=== PATIENT | female | born 1950 | race Caucasian/White ===

== ENCOUNTER 2018-07-16 07:07 | Inpatient (IN) | payer OTHER ==
[~2018-07-16] VITALS: Ht 154.9 cm; Wt 99.1 kg
[2018-07-16] MEDS ORDERED: RINGERS SOLUTION,LACTATED 1,000 ML IV ONE ×3 (07:50→10:45)
[2018-07-16] MEDS ORDERED: ACETAMINOPHEN 1000 MG/ISO-OSM 100 ML IV ONE ×2 (08:45→09:03)
[2018-07-16] MEDS ORDERED: FentaNYL CITRATE-PF 100 MCG/2 ML VIAL IVP PRN (08:45)
[2018-07-16] MEDS ORDERED: HYDROmorphone 2 MG/ML SYRINGE IVP PRN ×2 (08:45→09:00)
[2018-07-16] MEDS ORDERED: CELECOXIB 200 MG CAPSULE PO ONE ×2 (08:45→09:00)
[2018-07-16] MEDS ORDERED: MEPERIDINE-PF 25 MG/ML VIAL IVP PRN (08:45)
[2018-07-16] MEDS ORDERED: ONDANSETRON HCL 4 MG/2 ML VIAL IVP PRN ×2 (09:00→11:30)
[2018-07-16] MEDS ORDERED: BUPIVACAINE LIPOSOME/PF 1.3%-13.3MG/ML SUSPENSION 20 ML VIAL INJ ONE ×2 (09:00)
[2018-07-16] MEDS ORDERED: TRANEXAMIC ACID 1,000 MG in DEXTROSE 5%-WATER 50 ML IV ONE ×2 (09:00)
[2018-07-16] MEDS ORDERED: ZOLPIDEM TARTRATE 5 MG TABLET PO PRN (09:00)
[2018-07-16] MEDS ORDERED: OxyCODONE HCL 5 MG IR TABLET PO PRN (09:00)
[2018-07-16] MEDS ORDERED: CYCLOBENZAPRINE HCL 10 MG TABLET PO PRN (09:00)
[2018-07-16] MEDS ORDERED: CELECOXIB 200 MG CAPSULE ONE (09:03)
[2018-07-16 09:10] LABS: GLUCOMETER DEV NAME(LOC) SDS.; GLUCOSE,POINT OF CARE 113 MG/DL (70-110)
[2018-07-16] MEDS ORDERED: SODIUM CHLORIDE 0.9% 10 ML ONE (09:19)
[2018-07-16] MEDS ORDERED: SODIUM CL IRRIG SOLN BAG 3,000 ML IRRIG ONE (09:20)
[2018-07-16] MEDS ORDERED: BACITRACIN 50,000 UNITS/VIAL ONE (09:20)
[2018-07-16] MEDS ORDERED: BUPIVACAINE HCL/PF 0.5% 30 ML VIAL ONE (09:20)
[2018-07-16] MEDS ORDERED: SODIUM CHLORIDE 0.9% 100 ML ONE (09:28)
[2018-07-16] MEDS ORDERED: BENZOCAINE/MENTHOL LOZENGE PO PRN (11:30)
[2018-07-16] MEDS ORDERED: ZOLPIDEM TARTRATE 10 MG TABLET PO PRN (11:30)
[2018-07-16] MEDS ORDERED: DiphenhydrAMINE HCL 50 MG/ML VIAL IVP PRN (11:30)
[2018-07-16] MEDS ORDERED: BISACODYL 10 MG RECTAL RECTAL SUPPOSITORY PR PRN (11:30)
[2018-07-16] MEDS ORDERED: MAG HYDROX/AL HYDROX/SIMETH 30 ML SUSP UDCUP PO PRN (11:30)
[2018-07-16 13:10] VITALS: BP 153/93
[2018-07-16] MEDS: DEXTROSE 5%-LACTATED RINGERS 1,000 ML IV SCH (14:31)
[2018-07-16] MEDS: ACETAMINOPHEN 1000 MG/ISO-OSM 100 ML IV SCH ×3 (14:31→20:12)
[2018-07-16 16:06] VITALS: BP 156/94
[2018-07-16] MEDS ORDERED: ATOR40TA28 PO (16:24)
[2018-07-16] MEDS ORDERED: LISI-662 PO (16:24)
[2018-07-16] MEDS ORDERED: GABA-531 PO (16:24)
[2018-07-16] MEDS ORDERED: CALC-52 PO (16:24)
[2018-07-16] MEDS ORDERED: ALEN70TA10 PO (16:24)
[2018-07-16] MEDS: LISINOPRIL 20 MG TABLET PO SCH (17:14)
[2018-07-16] MEDS: CeFAZolin 1 GM/DEXTROSE 50 ML IV SCH (17:34)
[2018-07-16 20:05] VITALS: BP 124/60
[2018-07-16] MEDS: DOCUSATE SODIUM 100 MG CAPSULE PO SCH (20:12)
[2018-07-16] MEDS: ATORVASTATIN CALCIUM 40 MG TABLET PO SCH (20:12)
[2018-07-16] MEDS: GABAPENTIN 300 MG CAPSULE PO SCH (20:12)
[2018-07-16] MEDS: FAMOTIDINE 20 MG TABLET PO SCH (20:12)
[2018-07-16] MEDS: CELECOXIB 200 MG CAPSULE PO SCH (20:13)
[2018-07-16] MEDS: CALCIUM OYSTER SHELL 250 MG-VIT D3 125 UNITS TABLET PO SCH (20:13)
[2018-07-16] MEDS: OXYGEN THERAPY IH SCH (20:21)
[2018-07-16 23:54] VITALS: BP 134/66
[2018-07-17] MEDS: CeFAZolin 1 GM/DEXTROSE 50 ML IV SCH (01:55)
[2018-07-17] MEDS: ACETAMINOPHEN 1000 MG/ISO-OSM 100 ML IV SCH ×2 (02:34→10:34)
[2018-07-17] MEDS: DEXTROSE 5%-LACTATED RINGERS 1,000 ML IV SCH ×2 (04:58→14:10)
[2018-07-17] MEDS ORDERED: EPHEDrine SULFATE 50 MG/ML VIAL IM ONE (05:09)
[2018-07-17] MEDS ORDERED: DEXAMETHASONE SOD PHOS 4 MG/ML VIAL IVP ONE (05:09)
[2018-07-17] MEDS ORDERED: 0.9% SODIUM CHLORIDE 10 ML VIAL IVP ONE (05:09)
[2018-07-17] MEDS ORDERED: SUCCINYLCHOLINE CHLORIDE 20 MG/ML 10 ML VIAL IVP ONE (05:09)
[2018-07-17] MEDS ORDERED: ONDANSETRON HCL 4 MG/2 ML VIAL IVP ONE (05:09)
[2018-07-17] MEDS ORDERED: PROPOFOL 1% 20 ML VIAL IVP ONE (05:09)
[2018-07-17] MEDS ORDERED: FentaNYL CITRATE-PF 100 MCG/2 ML VIAL IVP ONE (05:09)
[2018-07-17] MEDS ORDERED: HYDROmorphone 2 MG/ML SYRINGE IVP ONE (05:09)
[2018-07-17 05:35] VITALS: BP 126/65
[2018-07-17 06:07] LABS: BASOPHILS % (AUTO) 0.1 % (0.0-2.0); EOSINOPHILS % (AUTO) 0 % (1.0-6.0); HEMATOCRIT 35.6 % (36-46); HEMOGLOBIN 11.9 g/dL (12.0-16.0); LYMPHOCYTES # (AUTO) 1.7 K/uL (1.0-4.8); LYMPHOCYTES % (AUTO) 17.9 % (22.0-44.0); MEAN CORPUSCULAR HGB CONC 33.3 G/dL (31.0-37.0); MEAN CORPUSCULAR VOLUME 93 fL (80-100); MONOCYTES # (AUTO) 0.8 K/uL (0.1-1.0); MONOCYTES % (AUTO) 8.2 % (2.0-9.0); NEUTROPHILS # (AUTO) 7.2 K/uL (1.8-7.7); NEUTROPHILS % (AUTO) 73.8 % (40.0-70.0); PLATELET COUNT (AUTO) 227 K/uL (150-450); RED BLOOD CELL COUNT(AUTO) 3.82 MIL/uL (4.00-5.20); RED CELL DISTRIBUTION WIDTH 14.1 % (11.5-14.5)
[2018-07-17 06:26] LABS: ANION GAP 10 mmol/L (8-16); CALCIUM, TOTAL 8.4 mg/dL (8.8-10.5); CARBON DIOXIDE 24 mmol/L (22-29); CHLORIDE 106 mmol/L (98-107); CREATININE 0.86 mg/dL (0.60-1.30); GLOMERULAR FILTR. RATE CALC > 60 mL/min (>60); GLUCOSE,RANDOM 141 mg/dL (70-110); POTASSIUM 3.9 mmol/L (3.5-5.1); SODIUM SERUM 140 mmol/L (136-145); UREA NITROGEN, BLOOD 14 mg/dL (7-18)
[2018-07-17] MEDS: OXYGEN THERAPY IH SCH (08:00)
[2018-07-17 08:02] VITALS: BP 133/70
[2018-07-17] MEDS: GABAPENTIN 300 MG CAPSULE PO SCH ×3 (08:51→20:44)
[2018-07-17] MEDS: DOCUSATE SODIUM 100 MG CAPSULE PO SCH ×2 (08:52→20:43)
[2018-07-17] MEDS: CALCIUM OYSTER SHELL 250 MG-VIT D3 125 UNITS TABLET PO SCH ×2 (08:52→20:44)
[2018-07-17] MEDS: LISINOPRIL 20 MG TABLET PO SCH (08:52)
[2018-07-17] MEDS: FAMOTIDINE 20 MG TABLET PO SCH ×2 (08:52→20:44)
[2018-07-17] MEDS: CELECOXIB 200 MG CAPSULE PO SCH ×2 (08:52→20:43)
[2018-07-17] MEDS: RIVAROXABAN 10 MG TABLET PO SCH (10:33)
[2018-07-17 10:34] VITALS: BP 142/70
[2018-07-17 11:54] VITALS: BP 144/73
[2018-07-17 15:44] VITALS: BP 154/66
[2018-07-17] MEDS: OxyCODONE HCL/ACETAMINOPHEN 10-325 MG TABLET PO PRN (17:01)
[2018-07-17 19:58] VITALS: BP 142/72
[2018-07-17] MEDS: ATORVASTATIN CALCIUM 40 MG TABLET PO SCH (20:44)
[2018-07-18] VITALS: BP 141/74
[2018-07-18 04:00] VITALS: BP 145/82
[2018-07-18] MEDS ORDERED: ALENDRONATE SODIUM 70 MG TABLET PO SCH (06:30)
[2018-07-18 07:44] LABS: BASOPHILS % (AUTO) 0.9 % (0.0-2.0); EOSINOPHILS % (AUTO) 0.6 % (1.0-6.0); HEMATOCRIT 38.3 % (36-46); HEMOGLOBIN 12.8 g/dL (12.0-16.0); LYMPHOCYTES # (AUTO) 2.9 K/uL (1.0-4.8); LYMPHOCYTES % (AUTO) 27.1 % (22.0-44.0); MEAN CORPUSCULAR HEMOGLOBIN 31.2 pg (26.0-34.0); MEAN CORPUSCULAR HGB CONC 33.3 G/dL (31.0-37.0); MEAN CORPUSCULAR VOLUME 94 fL (80-100); MONOCYTES # (AUTO) 0.8 K/uL (0.1-1.0); MONOCYTES % (AUTO) 7.3 % (2.0-9.0); NEUTROPHILS # (AUTO) 6.9 K/uL (1.8-7.7); NEUTROPHILS % (AUTO) 64.1 % (40.0-70.0); PLATELET COUNT (AUTO) 240 K/uL (150-450); RED BLOOD CELL COUNT(AUTO) 4.09 MIL/uL (4.00-5.20); RED CELL DISTRIBUTION WIDTH 14.2 % (11.5-14.5)
[2018-07-18 08:10] VITALS: BP 164/81
[2018-07-18] MEDS: CALCIUM OYSTER SHELL 250 MG-VIT D3 125 UNITS TABLET PO SCH ×2 (08:39→20:45)
[2018-07-18] MEDS: FAMOTIDINE 20 MG TABLET PO SCH ×2 (08:40→20:45)
[2018-07-18] MEDS: LISINOPRIL 20 MG TABLET PO SCH (08:40)
[2018-07-18] MEDS: DOCUSATE SODIUM 100 MG CAPSULE PO SCH ×2 (08:40→20:45)
[2018-07-18] MEDS: GABAPENTIN 300 MG CAPSULE PO SCH ×3 (08:40→20:45)
[2018-07-18] MEDS: CELECOXIB 200 MG CAPSULE PO SCH ×2 (08:40→20:45)
[2018-07-18] MEDS: OxyCODONE HCL/ACETAMINOPHEN 10-325 MG TABLET PO PRN ×2 (08:49→17:36)
[2018-07-18 12:24] VITALS: BP 150/68
[2018-07-18 16:18] VITALS: BP 125/67
[2018-07-18] MEDS: RIVAROXABAN 10 MG TABLET PO SCH (16:36)
[2018-07-18 20:44] VITALS: BP 132/61
[2018-07-18] MEDS: ATORVASTATIN CALCIUM 40 MG TABLET PO SCH (20:45)
[2018-07-19 00:09] VITALS: BP 138/66
[2018-07-19] MEDS: OxyCODONE HCL/ACETAMINOPHEN 10-325 MG TABLET PO PRN ×2 (05:32→15:06)
[2018-07-19 05:51] VITALS: BP 131/65
[2018-07-19 07:40] VITALS: BP 128/70
[2018-07-19] MEDS: CELECOXIB 200 MG CAPSULE PO SCH (08:43)
[2018-07-19] MEDS: FAMOTIDINE 20 MG TABLET PO SCH (08:43)
[2018-07-19] MEDS: CALCIUM OYSTER SHELL 250 MG-VIT D3 125 UNITS TABLET PO SCH (08:43)
[2018-07-19] MEDS: GABAPENTIN 300 MG CAPSULE PO SCH ×2 (08:43→15:49)
[2018-07-19] MEDS: LISINOPRIL 20 MG TABLET PO SCH (08:44)
[2018-07-19] MEDS: DOCUSATE SODIUM 100 MG CAPSULE PO SCH (08:44)
[2018-07-19 11:34] VITALS: BP 145/68
[2018-07-19] MEDS ORDERED: OXYC-38 PO (14:30)
[2018-07-19] MEDS ORDERED: RIVA10 PO (14:31)
[2018-07-19 15:04] VITALS: BP 140/70
== END 2018-07-19 17:00 | disposition home or self-care (01) | DRG 470 ==
LOC: 4E 07:07
PROVIDERS: ADMIT Orthopaedic Surgery; ATTEND Orthopaedic Surgery
PROC: 0SRC0J9 Replacement of Right Knee Joint with Synthetic Substitute, Cemented, Open Approach (ICD-10-PCS; principal; 2018-07-16 10:00)
DX: M17.11 Unilateral primary osteoarthritis, right knee (principal); Z68.41 Body mass index [BMI] 40.0-44.9, adult; E78.5 Hyperlipidemia, unspecified; I10 Essential (primary) hypertension; K21.9 Gastro-esophageal reflux disease without esophagitis; E66.01 Morbid (severe) obesity due to excess calories; E78.00 Pure hypercholesterolemia, unspecified; G89.29 Other chronic pain
CPT/HCPCS: 87081; 88300; 93005; 97110; 97116; 97162; 97166; 97530; 97535; C9290; G0238; G0378; J0131; J0330; J0690; J1100; J1170; J2405; J2704; J3010; J3490; J7050; J7060; J7120

== ENCOUNTER 2019-05-20 05:28 | Inpatient (IN) | payer OTHER ==
[2019-05-13 12:11] LABS: BASOPHILS % (AUTO) 0.7 % (0.0-2.0); EOSINOPHILS % (AUTO) 1.5 % (1.0-6.0); HEMATOCRIT 40.3 % (36-46); HEMOGLOBIN 13.5 g/dL (12.0-16.0); LYMPHOCYTES % (AUTO) 37.5 % (22.0-44.0); MEAN CORPUSCULAR HEMOGLOBIN 31.2 pg (26.0-34.0); MEAN CORPUSCULAR HGB CONC 33.5 G/dL (31.0-37.0); MEAN CORPUSCULAR VOLUME 93 fL (80-100); MONOCYTES # (AUTO) 0.6 K/uL (0.1-1.0); NEUTROPHILS # (AUTO) 4.3 K/uL (1.8-7.7); NEUTROPHILS % (AUTO) 53.3 % (40.0-70.0); PLATELET COUNT (AUTO) 238 K/uL (150-450); RED BLOOD CELL COUNT(AUTO) 4.32 MIL/uL (4.00-5.20); RED CELL DISTRIBUTION WIDTH 13.7 % (11.5-14.5)
[2019-05-13 12:21] LABS: ANION GAP 6 mmol/L (8-16); CALCIUM, TOTAL 9.1 mg/dL (8.8-10.5); CARBON DIOXIDE 29 mmol/L (22-29); CHLORIDE 104 mmol/L (98-107); GLUCOSE,RANDOM 93 mg/dL (70-110); POTASSIUM 3.9 mmol/L (3.5-5.1); SODIUM SERUM 139 mmol/L (136-145); UREA NITROGEN, BLOOD 20 mg/dL (7-18)
[2019-05-13 12:22] LABS: GLOMERULAR FILTR. RATE CALC > 60 mL/min (>60)
[2019-05-13 12:24] LABS: INR 1.1 (0.9-1.1); PROTHROMBIN TIME 10.8 SEC (9.4-11.6)
[~2019-05-20] VITALS: Ht 162.6 cm; Wt 95.9 kg
[~2019-05-20 05:28] MED LIST: ALEN35TA23 PO; ASPI-556 PO; ATOR10TA84 PO; GABA-529 PO; GLUC-111 PO; LISI-661 PO; RINGERS SOLUTION,LACTATED 1,000 ML IV ONE
[2019-05-20] MEDS ORDERED: RINGERS SOLUTION,LACTATED 1,000 ML IV ONE (06:00)
[2019-05-20 06:30] LABS: GLUCOMETER DEV NAME(LOC) SDS.; GLUCOSE,POINT OF CARE 108 MG/DL (70-110)
[2019-05-20] MEDS ORDERED: BUPIVACAINE LIPOSOME/PF 1.3%-13.3MG/ML SUSPENSION 20 ML VIAL INJ ONE (06:45)
[2019-05-20] MEDS ORDERED: HYDROmorphone 2 MG/ML SYRINGE IVP PRN (07:00)
[2019-05-20] MEDS ORDERED: ONDANSETRON HCL 4 MG/2 ML VIAL IVP PRN ×2 (07:00→09:30)
[2019-05-20] MEDS ORDERED: ZOLPIDEM TARTRATE 5 MG TABLET PO PRN (07:00)
[2019-05-20] MEDS ORDERED: FentaNYL CITRATE-PF 100 MCG/2 ML VIAL IVP PRN (07:00)
[2019-05-20] MEDS ORDERED: CELECOXIB 200 MG CAPSULE PO ONE (07:00)
[2019-05-20] MEDS ORDERED: MEPERIDINE-PF 25 MG/ML VIAL IVP PRN (07:00)
[2019-05-20] MEDS: ACETAMINOPHEN 1000 MG/ISO-OSM 100 ML IV SCH ×3 (07:04→18:44)
[2019-05-20] MEDS ORDERED: TRANEXAMIC ACID 1,000 MG in DEXTROSE 5%-WATER 50 ML IV ONE (07:15)
[2019-05-20] MEDS ORDERED: SODIUM CL IRRIG SOLN BAG 3,000 ML IRRIG ONE (07:52)
[2019-05-20] MEDS ORDERED: BACITRACIN 50,000 UNITS/VIAL ONE (07:52)
[2019-05-20] MEDS: OXYGEN THERAPY IH SCH (08:00)
[2019-05-20] MEDS ORDERED: BACITRACIN 28.4 GM OINTMENT TP PRN (09:30)
[2019-05-20] MEDS ORDERED: MAG HYDROX/AL HYDROX/SIMETH 30 ML SUSP UDCUP PO PRN (09:30)
[2019-05-20] MEDS ORDERED: ZOLPIDEM TARTRATE 10 MG TABLET PO PRN (09:30)
[2019-05-20] MEDS ORDERED: BISACODYL 10 MG RECTAL RECTAL SUPPOSITORY PR PRN (09:30)
[2019-05-20] MEDS ORDERED: DiphenhydrAMINE HCL 50 MG/ML VIAL IVP PRN (09:30)
[2019-05-20 09:43] VITALS: BP 141/97
[2019-05-20 11:23] VITALS: BP 145/90
[2019-05-20 12:27] VITALS: BP 157/87
[2019-05-20] MEDS: OxyCODONE HCL 5 MG IR TABLET PO PRN ×2 (12:54→21:07)
[2019-05-20] MEDS: CYCLOBENZAPRINE HCL 10 MG TABLET PO PRN ×2 (12:54→21:07)
[2019-05-20] MEDS: SODIUM CHLORIDE 0.9% 1,000 ML IV SCH ×2 (13:06→21:34)
[2019-05-20] MEDS: HYDROmorphone 2 MG/ML SYRINGE IVP PRN ×2 (15:23→18:44)
[2019-05-20 16:05] VITALS: BP 100/72
[2019-05-20] MEDS: CeFAZolin 1 GM/DEXTROSE 50 ML IV SCH (16:40)
[2019-05-20 19:28] LABS: GLUCOMETER DEV NAME(LOC) 6N.1; GLUCOSE,POINT OF CARE 158 MG/DL (70-110)
[2019-05-20 19:43] VITALS: BP 160/89
[2019-05-20] MEDS ORDERED: LISINOPRIL 10 MG TABLET PO ONE (21:00)
[2019-05-20] MEDS ORDERED: CloNIDine HCL 0.1 MG TABLET PO PRN (21:00)
[2019-05-20] MEDS: CELECOXIB 200 MG CAPSULE PO SCH (21:07)
[2019-05-20] MEDS: DOCUSATE SODIUM 100 MG CAPSULE PO SCH (21:07)
[2019-05-20] MEDS: FAMOTIDINE 20 MG TABLET PO SCH (21:07)
[2019-05-20] MEDS: ATORVASTATIN CALCIUM 10 MG TABLET PO SCH (21:33)
[2019-05-20 23:10] VITALS: BP 145/73
[2019-05-21] MEDS: ACETAMINOPHEN 1000 MG/ISO-OSM 100 ML IV SCH ×2 (00:39→06:39)
[2019-05-21] MEDS: CeFAZolin 1 GM/DEXTROSE 50 ML IV SCH (00:40)
[2019-05-21] MEDS: OxyCODONE HCL 5 MG IR TABLET PO PRN ×2 (01:08→05:17)
[2019-05-21 05:05] VITALS: BP 142/71
[2019-05-21 05:24] VITALS: BP 167/62
[2019-05-21] MEDS ORDERED: EPHEDrine SULFATE 50 MG/ML VIAL IM ONE (05:56)
[2019-05-21] MEDS ORDERED: PHENYLEPHRINE HCL 10 MG/ML VIAL IVP ONE (05:56)
[2019-05-21] MEDS ORDERED: FentaNYL CITRATE-PF 100 MCG/2 ML VIAL IVP ONE (05:56)
[2019-05-21] MEDS ORDERED: 0.9% SODIUM CHLORIDE 10 ML VIAL IVP ONE (05:56)
[2019-05-21] MEDS ORDERED: KETAMINE HCL 50 MG/ML 10 ML VIAL IVP ONE (05:56)
[2019-05-21 06:18] LABS: GLUCOMETER DEV NAME(LOC) 6N.1; GLUCOSE,POINT OF CARE 186 MG/DL (70-110)
[2019-05-21 06:59] LABS: ALANINE AMINOTRANSFERASE 21 U/L (12-78); ALBUMIN 2.8 g/dL (3.4-5.0); ALKALINE PHOSPHATASE 60 U/L (46-116); ANION GAP 7 mmol/L (8-16); ASPARTATE AMINOTRANSFERASE 19 U/L (15-37); BILIRUBIN,TOTAL 0.4 mg/dL (0.1-1.0); CALCIUM, TOTAL 8.2 mg/dL (8.8-10.5); CARBON DIOXIDE 28 mmol/L (22-29); CHLORIDE 105 mmol/L (98-107); CREATININE 0.56 mg/dL (0.60-1.30); GLUCOSE,RANDOM 154 mg/dL (70-110); POTASSIUM 4.6 mmol/L (3.5-5.1); SODIUM SERUM 140 mmol/L (136-145); TOTAL PROTEIN, SERUM 6.5 g/dL (6.4-8.2); UREA NITROGEN, BLOOD 11 mg/dL (7-18)
[2019-05-21 07:13] LABS: GLOMERULAR FILTR. RATE CALC > 60 mL/min (>60)
[2019-05-21 07:38] LABS: BASOPHILS % (AUTO) 0.4 % (0.0-2.0); EOSINOPHILS % (AUTO) 0.6 % (1.0-6.0); HEMATOCRIT 36.4 % (36-46); HEMOGLOBIN 12.1 g/dL (12.0-16.0); LYMPHOCYTES # (AUTO) 1.8 K/uL (1.0-4.8); LYMPHOCYTES % (AUTO) 18.8 % (22.0-44.0); MEAN CORPUSCULAR HEMOGLOBIN 31.2 pg (26.0-34.0); MEAN CORPUSCULAR HGB CONC 33.3 G/dL (31.0-37.0); MEAN CORPUSCULAR VOLUME 94 fL (80-100); MONOCYTES # (AUTO) 0.8 K/uL (0.1-1.0); MONOCYTES % (AUTO) 8.1 % (2.0-9.0); NEUTROPHILS # (AUTO) 6.9 K/uL (1.8-7.7); NEUTROPHILS % (AUTO) 72.1 % (40.0-70.0); PLATELET COUNT (AUTO) 227 K/uL (150-450); RED BLOOD CELL COUNT(AUTO) 3.88 MIL/uL (4.00-5.20); RED CELL DISTRIBUTION WIDTH 13.8 % (11.5-14.5)
[2019-05-21 08:01] VITALS: BP 155/76
[2019-05-21] MEDS: FAMOTIDINE 20 MG TABLET PO SCH ×2 (08:47→20:37)
[2019-05-21] MEDS: GABAPENTIN 100 MG CAPSULE PO SCH (08:48)
[2019-05-21] MEDS: DOCUSATE SODIUM 100 MG CAPSULE PO SCH ×2 (08:48→20:37)
[2019-05-21] MEDS: RIVAROXABAN 10 MG TABLET PO SCH (08:50)
[2019-05-21] MEDS: CELECOXIB 200 MG CAPSULE PO SCH ×2 (08:50→20:34)
[2019-05-21] MEDS: LISINOPRIL 10 MG TABLET PO SCH (08:50)
[2019-05-21] MEDS: HYDROmorphone 2 MG/ML SYRINGE IVP PRN (08:51)
[2019-05-21] MEDS ORDERED: DEXTROSE 50%-WATER 25 GM/50 ML SYRINGE IVP PRN (10:15)
[2019-05-21 11:40] VITALS: BP 161/87
[2019-05-21 12:03] LABS: GLUCOMETER DEV NAME(LOC) 4E.2; GLUCOSE,POINT OF CARE 150 MG/DL (70-110)
[2019-05-21] MEDS: INSULIN LISPRO 100 UNITS/ML SQ PRN ×3 (12:04→21:27)
[2019-05-21 15:59] VITALS: BP 139/76
[2019-05-21] MEDS: ATORVASTATIN CALCIUM 10 MG TABLET PO SCH (21:47)
[2019-05-21 23:59] VITALS: BP 141/78
[2019-05-22 04:00] VITALS: BP 138/74
[2019-05-22 04:03] LABS: GLUCOMETER DEV NAME(LOC) 6N.1; GLUCOSE,POINT OF CARE 143 MG/DL (70-110)
[2019-05-22 05:51] LABS: GLUCOMETER DEV NAME(LOC) 4E.2; GLUCOSE,POINT OF CARE 180 MG/DL (70-110)
[2019-05-22] MEDS: INSULIN LISPRO 100 UNITS/ML SQ PRN ×2 (06:48→22:28)
[2019-05-22 06:51] LABS: BASOPHILS % (AUTO) 0.2 % (0.0-2.0); EOSINOPHILS % (AUTO) 0.5 % (1.0-6.0); HEMATOCRIT 34.5 % (36-46); HEMOGLOBIN 11.6 g/dL (12.0-16.0); LYMPHOCYTES # (AUTO) 1.8 K/uL (1.0-4.8); LYMPHOCYTES % (AUTO) 17.1 % (22.0-44.0); MEAN CORPUSCULAR HEMOGLOBIN 31.7 pg (26.0-34.0); MEAN CORPUSCULAR HGB CONC 33.6 G/dL (31.0-37.0); MEAN CORPUSCULAR VOLUME 94 fL (80-100); MONOCYTES # (AUTO) 0.9 K/uL (0.1-1.0); MONOCYTES % (AUTO) 8.1 % (2.0-9.0); NEUTROPHILS # (AUTO) 7.9 K/uL (1.8-7.7); NEUTROPHILS % (AUTO) 74.1 % (40.0-70.0); PLATELET COUNT (AUTO) 226 K/uL (150-450); RED BLOOD CELL COUNT(AUTO) 3.66 MIL/uL (4.00-5.20)
[2019-05-22 07:17] LABS: ALANINE AMINOTRANSFERASE 18 U/L (12-78); ALBUMIN 2.8 g/dL (3.4-5.0); ALKALINE PHOSPHATASE 61 U/L (46-116); ANION GAP 6 mmol/L (8-16); ASPARTATE AMINOTRANSFERASE 13 U/L (15-37); BILIRUBIN,TOTAL 0.5 mg/dL (0.1-1.0); CALCIUM, TOTAL 8.5 mg/dL (8.8-10.5); CARBON DIOXIDE 28 mmol/L (22-29); CHLORIDE 107 mmol/L (98-107); CREATININE 0.68 mg/dL (0.60-1.30); GLUCOSE,RANDOM 149 mg/dL (70-110); POTASSIUM 4.5 mmol/L (3.5-5.1); SODIUM SERUM 141 mmol/L (136-145); TOTAL PROTEIN, SERUM 6.8 g/dL (6.4-8.2); UREA NITROGEN, BLOOD 12 mg/dL (7-18)
[2019-05-22 07:20] LABS: GLOMERULAR FILTR. RATE CALC > 60 mL/min (>60)
[2019-05-22] MEDS: OXYGEN THERAPY IH SCH ×2 (08:00→20:00)
[2019-05-22 09:05] VITALS: BP 144/74
[2019-05-22] MEDS: CELECOXIB 200 MG CAPSULE PO SCH ×2 (09:11→21:56)
[2019-05-22] MEDS: FAMOTIDINE 20 MG TABLET PO SCH ×2 (09:11→21:56)
[2019-05-22] MEDS: DOCUSATE SODIUM 100 MG CAPSULE PO SCH ×2 (09:11→21:56)
[2019-05-22] MEDS: LISINOPRIL 10 MG TABLET PO SCH (09:12)
[2019-05-22] MEDS: OxyCODONE HCL/ACETAMINOPHEN 10-325 MG TABLET PO PRN ×2 (09:12→20:03)
[2019-05-22] MEDS: CYCLOBENZAPRINE HCL 10 MG TABLET PO PRN (09:12)
[2019-05-22] MEDS: GABAPENTIN 100 MG CAPSULE PO SCH (09:12)
[2019-05-22 12:24] LABS: GLUCOMETER DEV NAME(LOC) 4E.2; GLUCOSE,POINT OF CARE 154 MG/DL (70-110)
[2019-05-22 12:24] LABS: GLUCOMETER DEV NAME(LOC) 6N.1; GLUCOSE,POINT OF CARE 131 MG/DL (70-110)
[2019-05-22 13:16] VITALS: BP 155/99
[2019-05-22] MEDS: SODIUM CHLORIDE 0.9% 1,000 ML IV SCH (14:47)
[2019-05-22] MEDS: RIVAROXABAN 10 MG TABLET PO SCH (16:42)
[2019-05-22 17:00] VITALS: BP 136/71
[2019-05-22 19:40] VITALS: BP 134/73
[2019-05-22 21:23] LABS: GLUCOMETER DEV NAME(LOC) 6N.1; GLUCOSE,POINT OF CARE 124 MG/DL (70-110)
[2019-05-22 21:40] LABS: GLUCOMETER DEV NAME(LOC) 4E.2; GLUCOSE,POINT OF CARE 145 MG/DL (70-110)
[2019-05-22] MEDS: ATORVASTATIN CALCIUM 10 MG TABLET PO SCH (21:56)
[2019-05-22 23:05] VITALS: BP 117/52
[2019-05-23] MEDS: OxyCODONE HCL/ACETAMINOPHEN 10-325 MG TABLET PO PRN ×2 (02:03→07:46)
[2019-05-23] MEDS: SODIUM CHLORIDE 0.9% 1,000 ML IV SCH (04:07)
[2019-05-23 04:45] VITALS: BP 102/60
[2019-05-23 06:11] LABS: GLUCOMETER DEV NAME(LOC) 6N.1; GLUCOSE,POINT OF CARE 110 MG/DL (70-110)
[2019-05-23 06:30] LABS: BASOPHILS % (AUTO) 0.7 % (0.0-2.0); EOSINOPHILS % (AUTO) 1.6 % (1.0-6.0); HEMATOCRIT 35.7 % (36-46); HEMOGLOBIN 11.9 g/dL (12.0-16.0); LYMPHOCYTES # (AUTO) 4.3 K/uL (1.0-4.8); LYMPHOCYTES % (AUTO) 37.4 % (22.0-44.0); MEAN CORPUSCULAR HEMOGLOBIN 31.2 pg (26.0-34.0); MEAN CORPUSCULAR HGB CONC 33.2 G/dL (31.0-37.0); MEAN CORPUSCULAR VOLUME 94 fL (80-100); MONOCYTES # (AUTO) 0.8 K/uL (0.1-1.0); MONOCYTES % (AUTO) 7.2 % (2.0-9.0); NEUTROPHILS # (AUTO) 6.1 K/uL (1.8-7.7); NEUTROPHILS % (AUTO) 53.1 % (40.0-70.0); PLATELET COUNT (AUTO) 247 K/uL (150-450); RED CELL DISTRIBUTION WIDTH 14.1 % (11.5-14.5)
[2019-05-23 06:50] LABS: ALANINE AMINOTRANSFERASE 22 U/L (12-78); ALKALINE PHOSPHATASE 61 U/L (46-116); ANION GAP 8 mmol/L (8-16); ASPARTATE AMINOTRANSFERASE 16 U/L (15-37); BILIRUBIN,TOTAL 0.5 mg/dL (0.1-1.0); CALCIUM, TOTAL 8.7 mg/dL (8.8-10.5); CARBON DIOXIDE 27 mmol/L (22-29); CHLORIDE 106 mmol/L (98-107); CREATININE 0.65 mg/dL (0.60-1.30); GLUCOSE,RANDOM 118 mg/dL (70-110); POTASSIUM 4.3 mmol/L (3.5-5.1); SODIUM SERUM 141 mmol/L (136-145); TOTAL PROTEIN, SERUM 7.2 g/dL (6.4-8.2); UREA NITROGEN, BLOOD 18 mg/dL (7-18)
[2019-05-23 06:57] LABS: GLOMERULAR FILTR. RATE CALC > 60 mL/min (>60)
[2019-05-23] MEDS: OXYGEN THERAPY IH SCH (07:42)
[2019-05-23 07:44] VITALS: BP 126/61
[2019-05-23] MEDS: CYCLOBENZAPRINE HCL 10 MG TABLET PO PRN (07:45)
[2019-05-23] MEDS: DOCUSATE SODIUM 100 MG CAPSULE PO SCH (07:45)
[2019-05-23] MEDS: FAMOTIDINE 20 MG TABLET PO SCH (07:45)
[2019-05-23] MEDS: GABAPENTIN 100 MG CAPSULE PO SCH (07:46)
[2019-05-23] MEDS: CELECOXIB 200 MG CAPSULE PO SCH (07:46)
[2019-05-23] MEDS: LISINOPRIL 10 MG TABLET PO SCH (07:46)
[2019-05-23 11:00] VITALS: BP 109/54
[2019-05-23 11:27] LABS: GLUCOMETER DEV NAME(LOC) 6N.1; GLUCOSE,POINT OF CARE 117 MG/DL (70-110)
== END 2019-05-23 14:45 | disposition home or self-care (01) | DRG 470 ==
LOC: 6N 05:28 → 4E 11:01
PROVIDERS: ADMIT Orthopaedic Surgery; ATTEND Orthopaedic Surgery
PROC: 0SRD0J9 Replacement of Left Knee Joint with Synthetic Substitute, Cemented, Open Approach (ICD-10-PCS; principal; 2019-05-20 07:30)
DX: M17.12 Unilateral primary osteoarthritis, left knee (principal); I10 Essential (primary) hypertension; E78.5 Hyperlipidemia, unspecified; E11.40 Type 2 diabetes mellitus with diabetic neuropathy, unspecified; E78.00 Pure hypercholesterolemia, unspecified; E66.01 Morbid (severe) obesity due to excess calories; Z96.651 Presence of right artificial knee joint; Z68.36 Body mass index [BMI] 36.0-36.9, adult
CPT/HCPCS: 87081; 93005; 97110; 97116; 97162; 97166; 97530; 97535; C9290; G0238; G0378; J0131; J0690; J1170; J2370; J2405; J3010; J3490; J7030; J7060; J7120